=== PATIENT | male | born 1965 | race Caucasian/White ===

== ENCOUNTER 2022-07-09 10:24 | Outpatient (CLI) | payer OTHER ==
[2022-07-09 11:08] VITALS: BP 124/68
--- NOTE | 2022-07-09 11:08 | SLEEP CARE CONSULTATION ---
Information from patient questionnaire entered by Sushma Meadows. I have reviewed and concur with the information entered by Sushma Meadows. This document represents the service I personally performed and the decisions made by me, Veronica Larry ARNP. History of Present Illness Service Date and Time: 07/09/2022 1024 Reason for Visit: New patient Chief Complaint: reports: Unrefreshed sleep, Snoring, Fatigue Date of Onset: more than 7 years Usual bedtime: 9:30-10 PM Time it takes to fall asleep: 30 mins Snores at night: Yes Observed to quit breathing while asleep: Yes Sleeps alone due to snoring: Yes (sometimes) Number of times waking at night: 3-5 Reasons for waking at night: reports: Snoring, Gasping for air, Bathroom, Other ( nudges to turn over to stop snoring). denies: Choking, Pain Toss, Turn, or Twitch while sleeping: Yes Recalls having dreams: Yes Usually gets out of bed at: 0600 Feels refreshed in the morning: No Morning headache: Yes (sometimes (5 days week, light [place]); advil about 1 hr) Sleepy or fatigued during the day: Yes Ever fallen asleep while driving: No Takes day naps: Yes (when able; 4 days week now, 5-20 mins) Dreams during day naps: No Prior sleep studies: No Additional HPI information: I had the pleasure of seeing KIRAN ESCALANTE today regarding the possibility of him having a sleep disorder. His current complaints are fatigue, snoring and un refreshed sleep. He states that his is concerned about his snoring getting worse. He does not feel that he gets restful sleep. He is tired during the day and will take short naps a few times a week. He has woken himself up with loud snoring and feeling like he is gasping for air. He wakes between 3-5 times a night on average. He is usually able to go back to sleep when awakened. He was in a stressful job, but since changing to a different, less stressful job things have not changed. He is retiring in a few months from the and comes in to get this checked out. He states there is sleep disordered breathing in family. His father had and one brother has sleep apnea. 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 Patient is and lives in [place]. Have you smoked in the past 12 months: No Alcohol use: Yes Alcohol amount and frequency: 2-3 drinks, 4 x week Caffeine use: Yes Caffeine amount and frequency: 2 cups daily Family History Family history of sleep disordered breathing: Yes Family Hx Sleep Apnea: Mother: Snoring, Father: Snoring, Sibling: Sleep apnea - Untreated Allergies and Home Medications Drug allergies reviewed: Yes (NKDA) Home medication list reviewed: Yes (Vitamin B12, D3) Review of Systems Weight gain over past 5 years: 5 Cardiovascular: denies: high blood pressure Urinary: reports: urgency Ear/Nose/Throat: reports: wisdom teeth removed, other (enlarged tonsils). denies: tonsillectomy Endocrine: reports: sluggishness Musculoskeletal: reports: joint pain Physical Exam Vital signs obtained and entered by: Jaswinder, Supervisor Laboratory Pressure: 124/68 (left) Heart Rate: 62 O2 Saturation: 96 Height: 5 ft 9 in Weight: 187 lb Body Mass Index: 27.6 BMI Classification: Overweight Neck circumference: 18 (inches) Nostrils: patent to airflow Mouth and throat: narrow oropharynx Soft palate: long Hard palate: normal Uvula: long, edematous Uvula visualization: 25% Mallampati Class III Tongue: enlarged in size with teeth isaac on lateral edges Tonsils: 2+ Neck: normal w/o lymphadenopathy or thyromegaly Heart: regular rate and rhythm Lungs: clear bilaterally Impression and Plan 1. Suspected Obstructive Sleep Apnea-Hypopnea Syndrome, as suggested by a history of loud and irregular snoring, gasping or choking in sleep, morning headache, unrefreshed sleep, cognitive impairment, and excessive daytime sleepiness. Narrow oropharynx and obesity are common predisposing factors for obstructive sleep apnea-hypopnea syndrome. I recommend proceeding to polysomnography to confirm the diagnosis and to assess severity. If the patient has significant sleep disordered breathing, a manual CPAP titration study will also be performed to find the optimal treatment pressure. I informed the patient of what the sleep studies involve and after some discussion, obtained agreement to proceed. The pathophysiology of obstructive sleep apnea-hypopnea syndrome was discussed with the patient and health risks of cardiovascular and cerebrovascular disease if not treated. Risks of drowsy driving discussed in detail and patient advised to avoid long distance driving and to loin puller at the first sign of drowsiness. Patient agreed to plan. * Schedule polysomnography * Avoid long distance driving or driving when feeling sleepy. * Avoid alcohol, sedative and muscle relaxant around bedtime. * Attempt to lose weight. * Review instructions provided by trained office staff on how to prepare for the sleep study. * Return for follow-up after sleep study completed. Counseling Topics: Weight loss health impact Visit Type: In Office Time Spent with Patient (minutes): 30 Provider Statement: I spent 100% of the Face to Face Visit with the patient with greater than 50% spent counseling the patient and coordination of care.
== END 2022-07-09 10:25 | disposition home or self-care (01) ==
LOC: SC 10:24
PROVIDERS: ATTEND Nurse Practitioner Family
DX: R06.83 Snoring (principal); G47.8 Other sleep disorders; R51.9 Headache, unspecified; R53.83 Other fatigue; E66.3 Overweight; Z68.27 Body mass index [BMI] 27.0-27.9, adult
CPT/HCPCS: 99203; 99212

== ENCOUNTER 2022-07-29 20:44 | Outpatient (CLI) | payer OTHER | END 2022-07-29 20:45 | disposition home or self-care (01) | LOC: SC 20:44 | PROVIDERS: ATTEND Nurse Practitioner Family | DX: G47.61 Periodic limb movement disorder (principal); R06.83 Snoring | CPT/HCPCS: 95810 ==

== ENCOUNTER 2022-08-25 14:14 | Outpatient (CLI) | payer OTHER ==
--- NOTE | 2022-08-25 14:11 | SLEEP CARE CONSULTATION ---
Information from patient questionnaire entered by Sushma Meadows. I have reviewed and concur with the information entered by Sushma Meadows. This document represents the service I personally performed and the decisions made by , Veronica Larry ARNP. History of Present Illness Service Date and Time: 08/25/2022 1400 Initial [place] Sleepiness Scale score: 15 (06/2022) Current [place] Sleepiness Scale score: 19 (08/25/22) Additional HPI information: KIRAN ESCALANTE returns via video telehealth visit for follow up and results of the recently performed polysomnography. The patient was informed of the following findings: No significant sleep disordered breathing with an average AHI of 2.9 and ben oxygen saturation of 90%. Patient supine AHI was elevated at 7.3. He had mild PLMs not associated with sleep fragmentation. I explained the pathophysiology behind obstructive sleep apnea. Patient does not have sleep apnea and was advised how weight gain could increase the risk of developing sleep apnea in the future. Patient does not have significant sleep disordered breathing but has elevated AHI in supine position so advised positional therapy. Methods to achieve positional management therapy were discussed; such as, positioning with pillows or commercially available positional belts. Patient has light to moderate snoring. Snoring can be reduced by weight loss. Weight loss is best achieved with diet consult. Patient instructed to contact PCP for referral. Snoring can also be treated with an oral appliance from a dentist. Advised to check insurance coverage. In addition, an ENT evaluation can be do to see if other treatment is indicated. Patient was cautioned about risks of drowsy driving until sleepiness symptoms resolve. Sleep Study - Results Type of Sleep Study: Polysomnography (COMPLETED 07/29/22) Prior sleep studies: No Polysomnography/Home Sleep Study results: IMPRESSION: The quality of the study is good. The patient had normal sleep efficiency. The sleep architecture was relatively normal considering the first-night effect. Respiratory monitoring showed no significant sleep disordered breathing (AHI = 2.9) or hypoxia (ben oxygen saturation of 90%). The few respiratory events occurred almost exclusively during supine sleep (supine AHI = 7.3; non-supine = 1.45). Snore was light to moderate in intensity. There was mild periodic leg movement of sleep not associated with sleep fragmentation. Cardiac rhythm was normal sinus rhythm without significant arrhythmia. No abnormal behavior (parasomnia) observed during the night. CONCLUSIONS and RECOMMENDATIONS: 1. Periodic leg movement (ICD G47.61), mild, treatment may be indicated. Clinical correlation advised. 2. Primary Snore (ICD-10 R06.83), light to moderate, but no significant sleep disordered breathing except when the patient slept supine (supine AHI = 7.3). The patient is recommended to avoid sleeping supine. Allergies and Home Medications Drug allergies reviewed: Yes (NKDA) Home medication list reviewed: Yes (no changes) Review of Systems Review of systems same as previous: Yes (no changes) Physical Exam Vital signs obtained and entered by: VIA PHONE Height: 5 ft 9 in (PER PT) Weight: 178 lb (PER PT) Body Mass Index: 26.2 BMI Classification: Overweight Impression and Plan 1. Periodic limb movement, mild, that did not fragment patients sleep. Periodic limb movement of sleep (PLMS) is characterized by episodes of repetitive limb movements that occur during sleep and usually involve the lower limbs. The etiology is unknown. Caffeine can aggravate PLMS and should be avoided. Sleep hygiene methods can also improve sleep as well as lifestyle changes such as regular exercise. Patient was advised that no treatment is needed at this time. If symptoms increase, then further evaluation is indicated. 2. Snoring but no significant sleep disordered breathing. However, patient s upine AHI was elevated at 7.3 and he should avoid supine sleep. Patient advised that often weight loss will reduce snoring as well as apnea risk. An oral appliance can also be used for snoring. This would require a dental consultation. Patient cautioned not to use other online appliances as can cause bite issues. A list of accredited dentists in area and one local dentist who makes oral appliances given. Patient is advised to check if insurance will cover. An ENT consult can also be helpful to determine if any other treatment is an option. * Attempt to lose weight * Avoid alcohol consumption near bedtime * The patient is cautioned about driving until sleepiness is completely resolved. * Return as needed for follow up. Counseling Topics: Weight loss health impact Visit Type: Telehealth Video Video Type: Doximity Patient Location: Home Location of Provider: Office Patient agrees and consents to this telehealth visit type: Yes Patient agrees to have their insurance billed: Yes Time Spent with Patient (minutes): 14 Provider Statement: I spent 100% of the Telehealth Video Call with the patient with greater than 50% spent counseling the patient and coordination of care.
== END 2022-08-25 14:15 | disposition home or self-care (01) ==
LOC: SC 14:14
PROVIDERS: ATTEND Nurse Practitioner Family
DX: G47.61 Periodic limb movement disorder (principal); R06.83 Snoring